=== PATIENT | male | born 1980 | race Two or more races ===

== ENCOUNTER 2024-03-17 20:47 | Emergency (ER) | payer SELFPAY ==
[~2024-03-17] VITALS: Ht 160 cm; Wt 63.6 kg
[2024-03-17] MEDS: FUROSEMIDE 20 MG TAB PO ONE (03:22)
[2024-03-17 20:55] VITALS: BP 132/82; RESP 18; O2SAT 97
[2024-03-17 21:06] VITALS: PULSE 95
[2024-03-18 00:04] LABS: Hemoglobin 9.3 g/dL (13.5-17.5); Red Blood Cells 3.52 10^6/uL (4.5-5.90); White Blood Cell 3.6 10^3/uL (4.4-10.8)
[2024-03-18 00:08] LABS: Basophils # (auto) 0 10 ^3/uL (0-0.2); Eosinophils # (auto) 0 10 ^3/uL (0-0.8); Eosinophils % (auto) 0.8 % (0.0-7.0); Hematocrit 29.1 % (41.0-53.0); Lymphocytes # (auto) 1.6 10 ^3/uL (0.4-5.4); Lymphocytes % (auto) 44.9 % (10.0-50.0); Mean Corpuscular Hemoglobin 26.5 pg (28.0-32.0); Mean Corpuscular Volume 82.8 fL (80.0-100.0); Monocytes # (auto) 0.3 10 ^3/uL (0-1.3); Monocytes % (auto) 8.1 % (0.0-12.0); Neutrophils # (auto) 1.6 10 ^3/uL (1.6-8.6); Neutrophils % (auto) 45.2 % (37.0-80.0); Nucleated Red Blood Cells % 0.4 %
[2024-03-18 00:09] LABS: Red Cell Distribution Width 20.9 % (11.8-14.3)
[2024-03-18 00:22] LABS: Alanine Aminotransferase 79 U/L (7-40); Albumin 3.3 g/dL (3.2-4.8); Alkaline Phosphatase 246 U/L (46-116); Anion Gap 8 (5-15); Aspartate Aminotransferase 209 U/L (13-40); BUN/Creatinine Ratio 10.1 (10.0-20.0); Blood Urea Nitrogen 7 mg/dL (9-23); Carbon Dioxide 25 mmol/L (20-30); Chloride 110 mmol/L (98-107); Glucose 110 mg/dL (74-106); Potassium 3.5 mmol/L (3.5-5.1); Sodium 143 mmol/L (136-145)
[2024-03-18 00:23] LABS: Total Protein 6.7 g/dL (5.7-8.2)
[2024-03-18 00:31] LABS: Anisocytosis Slight; Platelet Estimate Decreased; Target Cell FEW
[2024-03-18] MEDS ORDERED: SPIR25TA8 PO (01:42)
[2024-03-18 02:08] LABS: Blood Alcohol 315.9 mg/dL (<10)
[2024-03-18] MEDS: SPIRONOLACTONE 25 MG TAB PO ONE (03:20)
== END 2024-03-18 03:22 | disposition home or self-care (01) ==
LOC: ER 20:47 → EDBD 20:47 → ER 03-18 03:20
DX: F10.129 Alcohol abuse with intoxication, unspecified (principal); K74.60 Unspecified cirrhosis of liver; R60.0 Localized edema; R07.89 Other chest pain; Z79.899 Other long term (current) drug therapy; Y90.8 Blood alcohol level of 240 mg/100 ml or more
CPT/HCPCS: 36415; 71045; 80053; 80320; 83880; 85025; 93005